=== PATIENT | male | born 1955 | race Caucasian/White ===

== ENCOUNTER 2021-06-13 20:55 | Inpatient (IN) | payer MEDICAID, SELFPAY ==
--- NOTE | ~2021-06-13 | XR_ITS ---
EXAMINATION: XR KNEE, RIGHT CLINICAL INFORMATION: Right knee pain status post fall. COMPARISON: 02/11/2018 right knee radiographs. TECHNIQUE: Four views of the right knee. FINDINGS: The patient is status post proximal tibial ORIF showing good anatomic alignment with no evidence for hardware malfunction. Mild femoral-tibial degenerative joint changes are seen. There is no acute fracture, dislocation or joint effusion. Moderate atherosclerosis is noted. XR/XR knee RT 2V IMPRESSION: 1. No hardware abnormality. No acute fracture. 2. Mild femoral-tibial degenerative joint changes.
--- NOTE | ~2021-06-13 | CT_ITS ---
EXAMINATION: CT CERVICAL SPINE WITHOUT CONTRAST CLINICAL INFORMATION: Neck pain status post fall. COMPARISON: 08/05/[address] scan. TECHNIQUE: Multiple axial images of the cervical spine were obtained without intravenous contrast. Coronal and sagittal reformatted images were obtained. This CT examination was performed using dose optimization techniques as appropriate, variously including the following: *Automated exposure control *Adjustment of mA and/or kV according to patient size (this includes techniques or standardized protocols for targeted exams where dose is matched to indication/reason for exam; i.e. extremities or head) *Use of iterative reconstruction technique DLP: 402.88 mGy-cm FINDINGS: There is mild straightening of the normal cervical lordosis with normal spinal alignment. Moderate multilevel marginal osteophyte formation is seen. The vertebral bodies are intact. There is no acute fracture. The neural foramina are patent. The facet joints are unremarkable. The spinous processes are intact. Small nuchal ossification is noted at C4-C5. The prevertebral soft tissues are unremarkable. The cervical soft tissues are unremarkable. No lymphadenopathy. Moderate atherosclerosis is seen at the level of the carotid bulbs. The thyroid glands are unremarkable. The visualized lungs show mild biapical paraseptal emphysema. CT/CT cervical spine wo con IMPRESSION: 1. Multilevel degenerative changes without acute abnormality.
--- NOTE | ~2021-06-13 | XR_ITS ---
EXAMINATION: XR PELVIS CLINICAL INFORMATION: Right hip pain status post fall. COMPARISON: None TECHNIQUE: AP view of the pelvis. FINDINGS: Positioning is suboptimal. Deformity seen in the left intertrochanteric region with avulsion of the left lesser trochanter and mild varus angulation. The patient is status post right hip ORIF. There is good anatomic alignment without hardware malfunction. Hypertrophic osseous changes are seen predominantly in the region of the lesser trochanter. Mild bilateral hip degenerative joint changes are seen. The bony pelvis is intact. XR/XR pelvis 1-2V IMPRESSION: 1. Acute left intertrochanteric fracture. 2. No right hip hardware abnormality or acute fracture.
--- NOTE | ~2021-06-13 | CT_ITS ---
EXAMINATION: CT HEAD WITHOUT CONTRAST CLINICAL INFORMATION: Status post fall, rule out intracranial abnormality. COMPARISON: Head CT scan dated 10/18/2015. TECHNIQUE: Contiguous axial imaging was performed from the skull base to vertex without intravenous administration of contrast. Coronal and sagittal reformatted images were obtained. This CT examination was performed using dose optimization techniques as appropriate, variously including the following: *Automated exposure control *Adjustment of mA and/or kV according to patient size (this includes techniques or standardized protocols for targeted exams where dose is matched to indication/reason for exam; i.e. extremities or head) *Use of iterative reconstruction technique DLP: 764.80 mGy-cm FINDINGS: There is mild widening of the cortical sulci and associated ventriculomegaly. Mild periventricular microvascular changes are seen. The lateral ventricles are symmetrical. The third and fourth ventricles are in their normal midline position. Mild partial empty sella. The basilar and prepontine cisterns are unremarkable. There is no acute intra or extracerebral abnormality. There is no mass effect or midline shift. Sections through the bony calvarium are unremarkable. The orbits are intact. The paranasal sinuses are clear. The mastoid air cells are clear. Mild anterior nasal septal deviation, apex to the left is noted. CT/CT head/brain wo con IMPRESSION: No acute intracranial pathology.
[2021-06-13 21:03] VITALS: BP 110/60; BP 119/69; PULSE 70; PULSE 75; RESP 16; TEMP 36.3; O2SAT 97; O2SAT 99; BMI 23.6
--- NOTE | 2021-06-13 21:03 | ED_ITS ---
HPI - Fall General Chief Complaint: Fall Stated Complaint: fall Time Seen by Provider: 06/13/21 21:02 Source: patient Mode of arrival: EMS Limitations: altered mental status History of Present Illness complaint: fall Onset (ago): minute(s) (prior to arrival ) Fall from: standing Fall witnessed: yes, by living facility staff Place fall occurred: home Loss of consciousness: none Prolonged down time: no Symptoms prior to fall: none Context: tripped/slipped Location of injury: other (? L leg or R knee staff unsure did not strike head) Severity: mild Associated symptoms (after fall): unable to walk Related Data Allergies Allergy/AdvReac Type Severity Reaction Status Date / Time No Known Allergies Allergy Unverified 11/23/19 18:21 [No Known Allergies*] Review of Systems Review of Systems: ROS unable to be obtained due to altered mental status PMFSH Past Medical History Attestation statement: The following information was validated with the patient. Medical History Afib Dementia Falls HTN (hypertension) Social History Social History (Updated 06/13/21 @ 21:44 by Tati Kumar DO) Patient Tobacco Use Status: Tobacco use Unknown Advance Directives: No Advance Directives Information Provided: No Physical Exam Vital Signs: Vital Signs: Last Vital Signs Temp 97.4 F 06/13/21 21:03 Pulse 72 06/13/21 22:20 Resp 14 06/13/21 22:20 BP 123/78 06/13/21 22:20 Pulse Ox 99 06/13/21 22:20 BMI result Body Mass Index 23.6 Appearance: Alert. Confused. No acute distress. Eyes: Pupils equal, round and reactive to light. ENT: Pharynx normal. Atraumatic Neck: Normal inspection. Neck supple. CVS: irregular heart rate and rhythm. Pulses normal. Respiratory: No respiratory distress. Breath sounds normal. Abdomen: Soft and nontender. Atraumatic Skin: Skin warm and dry. Normal skin color. Extremities: No lower extremity edema. R knee ttp no effusion, says ow when moving L hip Neuro: Confused, moves all extremities, says Ow Course Course Course Narrative: message sent to Orthopedics they are aware medicine to admit MDM - Fall MDM Narrative Medical decision making narrative: 66 yo male with hx of dementia, falls, afib on DOAC, here with witnessed fall from SNF c/o R knee pain and L ?hip pain at this time will obtain labs, xrays of pelvis and R knee given DOAC use will obtain CT head/cspine. EKG as well. Dispo per results and findings. Lab Data Result diagrams: 06/13/21 23:00 06/13/21 23:00 Labs: Lab Results 06/13/21 06/13/21 06/13/21 Range/Units 23:00 23:00 23:00 WBC 9.5 (4.8-10.8) X10*3/uL RBC 5.01 (4.60-5.80) X10*6/uL Hgb 14.5 (14.0-18.0) g/dl Hct 43.9 (42.0-52.0) % MCV 87.6 (80.0-98.0) fL MCH 28.9 (27.0-33.0) pg MCHC 33.0 (31.0-36.0) g/dl RDW 14.6 (11.0-16.0) % Plt Count 159 L (160-400) X10*3/uL MPV 9.4 (9.4-12.4) fL Immature Gran % (Auto) 0.3 (0.0-0.4) % Neut % (Auto) 82.5 H (45-73) % Lymph % (Auto) 9.3 L (20-40) % [place] % (Auto) 7.0 (2-11) % Eos % (Auto) 0.6 (0-4) % Baso % (Auto) 0.3 (0-2) % Lymph # (Auto) 0.9 L (1.2-4.9) X10*3/uL [place] # (Auto) 0.7 (0.1-1.2) X10*3/uL Eos # (Auto) 0.1 (0.0-0.4) X10*3/uL Baso # (Auto) 0.0 (0.0-0.2) X10*3/uL Abs Immat Gran (auto) 0.03 (0.00-0.03) X10*3/uL Absolute Neuts (auto) 7.8 (2.0-8.3) x10*3/uL Absolute Nucleated RBC 0.000 (0.0-0.012) X10*3/uL Nucleated RBC % (auto) 0.0 (0.0-0.2) /100WBC PT 16.9 H (9.9-13.0) SEC INR 1.5 H (0.9-1.1) Sodium 141 (135-145) mmol/L Potassium 4.9 (3.3-5.1) mmol/L Chloride 106 (96-108) mmol/L Carbon Dioxide 25 (22-29) mmol/L Anion Gap 15 (12-20) BUN 24 H (9-16) mg/dL Creatinine 1.06 (0.5-1.4) mg/dL Estim Creat Clear Calc 67.6 Estimated GFR > 60 Random Glucose 133 H (60-115) mg/dL Calcium 9.9 (8.4-10.2) mg/dL Magnesium 2.2 (1.6-2.6) mg/dL Total Bilirubin 0.4 (0.0-1.0) mg/dL Direct Bilirubin 0.2 (0.0-0.5) mg/dL AST 17 (5-37) U/L ALT 12 (0-40) U/L Alkaline Phosphatase 86 (39-117) U/L Total Protein 8.4 H (6.5-8.0) g/dL Albumin 4.9 (3.5-5.0) g/dL ECG Data Attestation: I personally reviewed and interpreted this ECG as follows: ECG interpretation date: 06/13/21 ECG interpretation time: 22:42 Interpretation: Rate: 93 Rhythm: afib [place]: normal Normal P waves. Normal SHEKHAR. Normal QRS complex. ST T wave : no KANU, nonspecific qTC: normal prior studies: no acute ischemia The study has been interpreted contemporaneously by me. Discharge Plan Discharge Clinical Impression: Closed intertrochanteric fracture Qualifiers: Encounter type: initial encounter Fracture alignment: nondisplaced Laterality: left Qualified Code(s): S72.145A - Nondisplaced intertrochanteric fracture of left femur, initial encounter for closed fracture Patient Disposition: Admitted As Inpatient
--- NOTE | 2021-06-13 21:18 | ECG_ITS ---
Test Reason : FALL Blood Pressure : / mmHG Vent. Rate : 093 BPM Atrial Rate : 000 BPM P-R Int : 000 ms QRS Dur : 078 ms QT Int : 348 ms P-R-T Axes : 000 046 040 degrees QTc Int : 432 ms Atrial fibrillation Low voltage QRS Abnormal ECG When compared with ECG of 11-FEB-2018 12:10, Atrial fibrillation has replaced Sinus rhythm Vent. rate has increased BY 32 BPM QRS axis Shifted right Referred By: Tati Kumar Electronically Signed By:HUAN QIU MD
[2021-06-13 22:20] VITALS: BP 123/78; PULSE 72; RESP 14; O2SAT 99
[2021-06-13] MEDS: Acetaminophen Oral Liquid 650 MG/20.3 ML SOLUTION PO (22:24)
[2021-06-13 23:04] LABS: MANUAL DIFF FLAG NO
[2021-06-13 23:09] LABS: Basophils Percent Auto 0.3 % (0-2); Eosinophils Absolute Auto 0.1 X10*3/uL (0.0-0.4); Eosinophils Percent Auto 0.6 % (0-4); Hematocrit 43.9 % (42.0-52.0); Hemoglobin 14.5 g/dl (14.0-18.0); Imm Gran Abs Auto 0.03 X10*3/uL (0.00-0.03); Imm Gran Pct Auto 0.3 % (0.0-0.4); Lymphocytes Absolute Auto 0.9 X10*3/uL (1.2-4.9); Lymphocytes Percent Auto 9.3 % (20-40); Mean Corpuscular Hemoglobin 28.9 pg (27.0-33.0); Mean Corpuscular Volume 87.6 fL (80.0-98.0); Mean Platelet Volume 9.4 fL (9.4-12.4); Monocytes Absolute Auto 0.7 X10*3/uL (0.1-1.2); Neutrophils Absolute Auto 7.8 x10*3/uL (2.0-8.3); Neutrophils Percent Auto 82.5 % (45-73); Platelet Count 159 X10*3/uL (160-400); Red Blood Count 5.01 X10*6/uL (4.60-5.80); Red Cell Distribution Width 14.6 % (11.0-16.0); White Blood Count 9.5 X10*3/uL (4.8-10.8)
[2021-06-13 23:14] LABS: INTERNATIONAL NORM RATIO 1.5 (0.9-1.1); Prothrombin Time 16.9 SEC (9.9-13.0)
[2021-06-13 23:24] LABS: Alanine Aminotransferase 12 U/L (0-40); Albumin Level 4.9 g/dL (3.5-5.0); Alkaline Phosphatase 86 U/L (39-117); Anion Gap 15 (12-20); Aspartate Amino Transferase 17 U/L (5-37); Bilirubin Direct 0.2 mg/dL (0.0-0.5); Bilirubin Total 0.4 mg/dL (0.0-1.0); Blood Urea Nitrogen 24 mg/dL (9-16); Calcium 9.9 mg/dL (8.4-10.2); Carbon Dioxide 25 mmol/L (22-29); Chloride 106 mmol/L (96-108); Creatinine Clr Calc Pharmacy 67.6; Estimated Glomerular Filt Rate > 60; Glucose Random 133 mg/dL (60-115); Magnesium 2.2 mg/dL (1.6-2.6); Potassium 4.9 mmol/L (3.3-5.1); Sodium 141 mmol/L (135-145); Total Protein 8.4 g/dL (6.5-8.0)
--- NOTE | 2021-06-13 23:38 | PM.IMHP ---
History of Present Illness Date of Service: 06/13/21 Chief Complaint: fall 66 year-old male with past medical history of progressive dementia, AFib, falls, hypertension who comes in from correction after falling from a standing position. History is obtained from ED physician as well as paperwork that came with the patient from correction. It appears that patient had a fall, then developed significant pain in his left hip. Patient was sent to the hospital for further evaluation. I am unable to get any history from patient himself as he is confused, not responding to questions although awake. On arrival to the ED patient found to be hemodynamically stable Labs are significant for INR of 1.5 otherwise unremarkable Pelvic x-ray shows acute left intertrochanteric fracture unable to obtain past medical history as patient has severe dementia patient will be admitted with consult to orthopedic surgery Review of Systems Review of Systems: Yes all other systems are reviewed and are negative [facility] Medical History Afib Dementia Falls HTN (hypertension) Social History Patient Tobacco Use Status: Tobacco use Unknown Advance Directives: No Advance Directives Information Provided: No Meds Allergies Allergy/AdvReac Type Severity Reaction Status Date / Time No Known Allergies Allergy Unverified 11/23/19 18:21 [No Known Allergies*] Active Medications: Current Medications Morphine Sulfate (Morphine Sulfate 4 Mg/Ml Cartridge) 4 mg IVPUSH Q4H PRN; Protocol PRN Reason: Pain, Severe (Pain Scale 7-10) Pharmacy Consult (Consult Rx Perform Med Rec) 1 each MISCELLANE ONCE PRN PRN Reason: Consult order Sodium Chloride (0.9 % Sodium Chloride Flush 3 Ml Syringe) 3 ml IVFLUSH [facility] Medications Medication Instructions Recorded Confirmed Last Taken Type apixaban 5 mg tablet (Eliquis) 5 mg PO BID 06/14/21 06/14/21 06/13/21 21:00 History aspirin 81 mg tablet 81 mg PO DAILY 06/14/21 06/14/21 06/13/21 09:00 History atorvastatin 20 mg tablet (Lipitor) 20 mg PO BEDTIME 06/14/21 06/14/21 06/13/21 21:00 History benztropine 1 mg tablet 1 mg PO BID 06/14/21 06/14/21 06/13/21 21:00 History diltiazem HCl 180 mg 180 mg PO DAILY 06/14/21 06/14/21 06/13/21 09:00 History capsule,extended release 24 hr (Cartia XT) famotidine 40 mg tablet (Pepcid) 40 mg PO DAILY 06/14/21 06/14/21 06/13/21 09:00 History metoprolol tartrate 25 mg tablet 25 mg PO BID 06/14/21 06/14/21 06/13/21 17:00 History mirtazapine 15 mg tablet (Remeron) 7.5 mg PO BEDTIME 06/14/21 06/14/21 06/13/21 21:00 History olanzapine 10 mg tablet (Zyprexa) 10 mg PO DAILY 06/14/21 06/14/21 06/13/21 21:00 History olanzapine 2.5 mg tablet (Zyprexa) 2.5 mg PO DAILY 06/14/21 06/14/21 06/13/21 21:00 History polyethylene glycol 3350 17 gram 17 g PO DAILY 06/14/21 06/14/21 06/13/21 09:00 History oral powder packet (Miralax) quetiapine 200 mg tablet (Seroquel) 150 mg PO BEDTIME 06/14/21 06/14/21 06/13/21 21:00 History quetiapine 50 mg tablet (Seroquel) 50 mg PO DAILY 06/14/21 06/14/21 06/13/21 09:00 History tamsulosin 0.4 mg capsule (Flomax) 0.4 mg PO BEDTIME 06/14/21 06/14/21 06/13/21 09:00 History valproic acid (as sodium salt) 250 625 mg PO BID 06/14/21 06/14/21 06/13/21 17:00 History mg/5 mL oral solution Physical Exam Vital Signs and Narrative: Vital Signs: Last Vital Signs Temp 97.4 F 06/13/21 21:03 Pulse 72 06/13/21 22:20 Resp 14 06/13/21 22:20 BP 123/78 06/13/21 22:20 Pulse Ox 99 06/13/21 22:20 BMI result Body Mass Index 23.6 Const: Other: awake, but confused, does not respond to questions General: cooperative and no acute distress Eyes: General: appearance normal, both eyes and all related structures Pupils: Equal, round and reactive pupils present Resp: Effort & Inspection: normal respiratory effort Auscultation: clear to auscultation bilaterally Cardio: Rate: regular rate Rhythm: regular rhythm GI: Palpation (GI): Soft to palpation Auscultation: normal bowel sounds Skin: General skin exam: no rashes or lesions noted Neuro: Cranial nerves: Yes Equal, round and reactive pupils present Extrem: Other: left hip tenderness General: Yes no pedal edema Results Labs CBC and Chem 7: 06/13/21 23:00 06/13/21 23:00 Labs: Laboratory Results - last 24 hr 06/13/21 06/13/21 06/13/21 23:00 23:00 23:00 MCV 87.6 MCH 28.9 MCHC 33.0 RDW 14.6 Plt Count 159 L MPV 9.4 Immature Gran % (Auto) 0.3 Neut % (Auto) 82.5 H Lymph % (Auto) 9.3 L [place] % (Auto) 7.0 Eos % (Auto) 0.6 Baso % (Auto) 0.3 Lymph # (Auto) 0.9 L [place] # (Auto) 0.7 Eos # (Auto) 0.1 Baso # (Auto) 0.0 Abs Immat Gran (auto) 0.03 Absolute Neuts (auto) 7.8 Absolute Nucleated RBC 0.000 Nucleated RBC % (auto) 0.0 PT 16.9 H INR 1.5 H Anion Gap 15 Estim Creat Clear Calc 67.6 Estimated GFR > 60 Random Glucose 133 H Calcium 9.9 Magnesium 2.2 Total Bilirubin 0.4 Direct Bilirubin 0.2 AST 17 ALT 12 Alkaline Phosphatase 86 Total Protein 8.4 H Albumin 4.9 Imaging Radiologist's Impressions: Impressions Knee X-Ray 06/13/21 21:29 IMPRESSION: 1. No hardware abnormality. No acute fracture. 2. Mild femoral-tibial degenerative joint changes. Pelvis X-Ray 06/13/21 21:29 IMPRESSION: 1. Acute left intertrochanteric fracture. 2. No right hip hardware abnormality or acute fracture. Cervical Spine CT 06/13/21 21:53 IMPRESSION: 1. Multilevel degenerative changes without acute abnormality. Head CT 06/13/21 21:53 IMPRESSION: No acute intracranial pathology. Assessment and Plan (1) Closed intertrochanteric fracture: Qualifiers: Encounter type: initial encounter Fracture alignment: nondisplaced Laterality: left Qualified Code(s): S72.145A - Nondisplaced intertrochanteric fracture of left femur, initial encounter for closed fracture Status: Acute Plan 66-year-old male with past medical history of dementia who presents to the hospital after a fall found to have left hip fracture # left intertrochanteric fracture - pain control, consult to orthopedic surgery - will hold eliquis- pt will likely need to be off eliquis prior to surgical intervention # A fib? - on eliquis and dilt - Continue dilt as well as metoprolol per home meds, hold eliquis in anticipation of surgery # Hnt - continue dilt - stable bp continue all other home meds DVT ppx: SCDs Quality Stroke Does the patient have a stroke diagnosis?: No VTE Prior VTE?: No VTE Risk Level:: Surgical - very high VTE Device Contraindication: N/A - Device Ordered VTE Drug Contraindication: Treatment Not Indicated
[2021-06-14] VITALS (9 sets, daily range): BP systolic 91–112; BP diastolic 63–79; PULSE 86–110; RESP 12–58; TEMP 36.2–37; O2SAT 82–99
[2021-06-14 00:02] LABS: COVID-19 Test Negative (Negative)
[2021-06-14] MEDS: 0.9 % Sodium Chloride Flush 3 ML SYRINGE IVFLUSH ×2 (01:49→16:24)
--- NOTE | 2021-06-14 05:30 | PC.NURSE ---
Report given to OF RN.
[2021-06-14] MEDS: Morphine Sulfate 4 MG/ML CARTRIDGE IVPUSH (06:00)
[2021-06-14 06:59] LABS: MANUAL DIFF FLAG NO
[2021-06-14 07:06] LABS: Basophils Percent Auto 0.3 % (0-2); Eosinophils Percent Auto 0.1 % (0-4); Hematocrit 37.4 % (42.0-52.0); Hemoglobin 12.3 g/dl (14.0-18.0); Imm Gran Abs Auto 0.05 X10*3/uL (0.00-0.03); Imm Gran Pct Auto 0.5 % (0.0-0.4); Lymphocytes Absolute Auto 1.2 X10*3/uL (1.2-4.9); Mean Corpuscular HGB Conc 32.9 g/dl (31.0-36.0); Mean Corpuscular Hemoglobin 29.3 pg (27.0-33.0); Mean Platelet Volume 9.9 fL (9.4-12.4); Monocytes Absolute Auto 1.4 X10*3/uL (0.1-1.2); Monocytes Percent Auto 12.9 % (2-11); Neutrophils Absolute Auto 7.9 x10*3/uL (2.0-8.3); Neutrophils Percent Auto 75.2 % (45-73); Platelet Count 178 X10*3/uL (160-400); Red Cell Distribution Width 14.8 % (11.0-16.0); White Blood Count 10.5 X10*3/uL (4.8-10.8)
[2021-06-14 07:23] LABS: Anion Gap 15 (12-20); Blood Urea Nitrogen 27 mg/dL (9-16); Carbon Dioxide 23 mmol/L (22-29); Chloride 107 mmol/L (96-108); Creatinine Clr Calc Pharmacy 71.6; Estimated Glomerular Filt Rate > 60; Glucose Random 137 mg/dL (60-115); Potassium 4.3 mmol/L (3.3-5.1); Sodium 141 mmol/L (135-145)
--- NOTE | 2021-06-14 10:00 | PC.NURSE ---
pt alert oriented to self. pt assisted with meal, meds given as documented. some meds were not loaded in overflow pyxis, this conventional underwriter spoke with Tono in pharmacy to send meds. will continue to monitor.
--- NOTE | 2021-06-14 10:27 | P.EN_ITS ---
Event Note Date of Service: 06/14/21 Event Note: Spoke with [facility] in regards to patient [phone] He does ambulate with assitive device at baseline Spoke with nurse supervisor mirror fabrication at [facility]-judit kirkland He takes eliquis 9am and 5pm per MAR documentation at [facility] the last dose of eliquis was 06/13/21 @9pm he is a virgen of the formerly [facility], [facility] Guardian: jay brown [phone]
--- NOTE | 2021-06-14 10:27 | PM.EVENT ---
Event Note Date of Service: 06/14/21 Event Note: Spoke with [facility] in regards to patient [phone] He does ambulate with assitive device at baseline Spoke with nurse cured meats supervisor at [facility]-judit kirkland He takes eliquis 9am and 5pm per MAR documentation at [facility] the last dose of eliquis was 06/13/21 @9pm he is a virgen of the [facility] Guardian: jay brown [phone]
--- NOTE | 2021-06-14 10:28 | HO.PM.IMPN ---
Subjective Subjective Date of Service: 06/14/21 Interval History: seen and evaluated this morning open his eyes but nonverbal Review of Systems unable to obtain as the patient is nonverbal Physical Exam Vital Signs: Vital Signs: Last Vital Signs Temp 97.3 F 06/14/21 08:17 Pulse 86 06/14/21 08:17 Resp 15 06/14/21 08:17 BP 91/77 06/14/21 08:17 Pulse Ox 99 06/14/21 08:17 BMI result Body Mass Index 23.6 Const: Other: Constitutional : Alert with stimulation, not in distress Neck : Normal inspection, Supple Cardiovascular : RRR, no JVP, no lower extremity edema Respiratory : fair bilateral air entry, no crackles, wheezes or rhonchi Gastrointestinal: soft, lax, Normal bowel sounds, Non tender Skin : Warm, Dry extremities: left lower extremity shorter and externall Neurological : Alert, nonverbal, No focal deficit , CN 2-12 within normal Objective Data Active Medications Atorvastatin Calcium (Atorvastatin Calcium 20 Mg Tablet) 20 mg PO BEDTIME [facility]O Benztropine Mesylate (Benztropine Mesylate 1 Mg Tablet) 1 mg PO BID [facility] Diltiazem HCl (Diltiazem Hcl Cd 180 Mg Cap.Er.24h) 180 mg PO DAILY [facility]; Protocol Famotidine (Famotidine 20 Mg Tablet) 40 mg PO DAILY [facility] Metoprolol Tartrate (Metoprolol Tartrate 25 Mg Tablet) 25 mg PO BID [facility]; Protocol Mirtazapine (Mirtazapine 7.5 Mg Tablet) 7.5 mg PO BEDTIME [facility] Morphine Sulfate (Morphine Sulfate 4 Mg/Ml Cartridge) 4 mg IVPUSH Q4H PRN; Protocol PRN Reason: Pain, Severe (Pain Scale 7-10) Last Admin: 06/14/21 06:00 Dose: 4 mg Documented by: VEL Olanzapine (Olanzapine 2.5 Mg Tablet) 2.5 mg PO BID [facility]O Olanzapine (Olanzapine 10 Mg Tablet) 10 mg PO BID [facility] Pharmacy Consult (Consult Rx Perform Med Rec) 1 each MISCELLANE ONCE PRN PRN Reason: Consult order Polyethylene Glycol (Polyethylene Glycol 3350 17 Gm Powd.Pack) 17 gm PO DAILY [facility] Quetiapine Fumarate (Quetiapine Fumarate 50 Mg Tablet) 50 mg PO DAILY [facility] Quetiapine Fumarate (Quetiapine Fumarate 50 Mg Tablet) 150 mg PO BEDTIME [facility] Sodium Chloride (0.9 % Sodium Chloride Flush 3 Ml Syringe) 3 ml IVFLUSH QSHIFT [facility] Last Admin: 06/14/21 07:34 Dose: Not Given Documented by: MILVIA Non-Admin Reason: IV Running Tamsulosin HCl (Tamsulosin Hcl 0.4 Mg Capsule) 0.4 mg PO BEDTIME [facility] Valproic Acid (Valproic Acid (As Sodium Salt) 250 Mg/5 Ml Solution) 625 mg PO BID [facility] Labs CBC & Chem 7: 06/14/21 06:05 06/14/21 06:05 Labs: Laboratory Results - last 24 hr 06/13/21 06/13/21 06/13/21 23:00 23:00 23:00 MCV 87.6 MCH 28.9 MCHC 33.0 RDW 14.6 Plt Count 159 L MPV 9.4 Immature Gran % (Auto) 0.3 Neut % (Auto) 82.5 H Lymph % (Auto) 9.3 L [place] % (Auto) 7.0 Eos % (Auto) 0.6 Baso % (Auto) 0.3 Lymph # (Auto) 0.9 L [place] # (Auto) 0.7 Eos # (Auto) 0.1 Baso # (Auto) 0.0 Abs Immat Gran (auto) 0.03 Absolute Neuts (auto) 7.8 Absolute Nucleated RBC 0.000 Nucleated RBC % (auto) 0.0 PT 16.9 H INR 1.5 H Anion Gap 15 Estim Creat Clear Calc 67.6 Estimated GFR > 60 Random Glucose 133 H Calcium 9.9 Magnesium 2.2 Total Bilirubin 0.4 Direct Bilirubin 0.2 AST 17 ALT 12 Alkaline Phosphatase 86 Total Protein 8.4 H Albumin 4.9 COVID-19 ([facility]) COVID-19 Clin Com Blood Type Antibody Screen 06/13/21 06/13/21 06/14/21 23:20 23:20 06:05 MCV 89.0 MCH 29.3 MCHC 32.9 RDW 14.8 Plt Count 178 MPV 9.9 Immature Gran % (Auto) 0.5 H Neut % (Auto) 75.2 H Lymph % (Auto) 11.0 L [place] % (Auto) 12.9 H Eos % (Auto) 0.1 Baso % (Auto) 0.3 Lymph # (Auto) 1.2 [place] # (Auto) 1.4 H Eos # (Auto) 0.0 Baso # (Auto) 0.0 Abs Immat Gran (auto) 0.05 H Absolute Neuts (auto) 7.9 Absolute Nucleated RBC 0.000 Nucleated RBC % (auto) 0.0 PT INR Anion Gap Estim Creat Clear Calc Estimated GFR Random Glucose Calcium Magnesium Total Bilirubin Direct Bilirubin AST ALT Alkaline Phosphatase Total Protein Albumin COVID-19 ([facility]) Negative COVID-19 Clin Com See Note Blood Type B Positive Antibody Screen NEGATIVE 06/14/21 06:05 MCV MCH MCHC RDW Plt Count MPV Immature Gran % (Auto) Neut % (Auto) Lymph % (Auto) [place] % (Auto) Eos % (Auto) Baso % (Auto) Lymph # (Auto) [place] # (Auto) Eos # (Auto) Baso # (Auto) Abs Immat Gran (auto) Absolute Neuts (auto) Absolute Nucleated RBC Nucleated RBC % (auto) PT INR Anion Gap 15 Estim Creat Clear Calc 71.6 Estimated GFR > 60 Random Glucose 137 H Calcium 10.0 Magnesium Total Bilirubin Direct Bilirubin AST ALT Alkaline Phosphatase Total Protein Albumin COVID-19 ([facility]) COVID-19 Clin Com Blood Type Antibody Screen Assessment and Plan (1) Closed intertrochanteric fracture: Status: Acute Plan 66-year-old male with past medical history of dementia who presents to the hospital after a fall found to have left hip fracture # left intertrochanteric fracture pain control consult to orthopedic continue to hold eliquis # history AFib his continue diltiazem and metoprolol hold eliquis in anticipation of surgery # hypertension continue dilt continue the rest of home meds DVT ppx: SCDs the patient will need to stay overnight to continue pain management with plan for surgical in Quality Stroke Does the patient have a stroke diagnosis?: No VTE Prior VTE?: No VTE Risk Level:: Surgical - very high VTE Device Contraindication: N/A - Device Ordered VTE Drug Contraindication: Treatment Not Indicated
[2021-06-14] MEDS: Famotidine 20 MG TABLET 40 MG PO (11:11)
[2021-06-14] MEDS: dilTIAZem HCL CD 180 MG CAP.ER.24H PO (11:11)
[2021-06-14] MEDS: polyethylene glycoL 3350 17 GM POWD.PACK PO (11:11)
[2021-06-14] MEDS: Metoprolol Tartrate 25 MG TABLET PO ×2 (11:12→20:08)
[2021-06-14] MEDS: QUEtiapine Fumarate 50 MG TABLET PO (11:12)
--- NOTE | 2021-06-14 11:12 | MHC.CM.PN ---
PT IS A LTC RESIDENT OF [facility] PER [facility], PT HAS A LEGAL GUARDIAN [employer]OTT ISHA ALEJANDRINA THEY PROVIDED A CONTACT NUMBER OF [phone] BOTH JINA ADAMS AND CM HAVE ATTEMPTED TO CONTACT GUARDIAN USING THIS NUMBER, IT APPEARS TO BE OUT OF SERVICE CM SENT A REFERRAL TO [facility]IA [employer] WITH A MESSAGE REQUESTING AN ALTERNATE CONTACT NUMBER FOR PTS GUARDIAN. AWAITING RESPONSE.
[2021-06-14] MEDS: Benztropine Mesylate 1 MG TABLET PO ×2 (11:55→20:08)
[2021-06-14] MEDS: OLANZapine 2.5 MG TABLET PO ×2 (11:55→20:09)
[2021-06-14] MEDS: OLANZapine 10 MG TABLET PO ×2 (11:55→20:09)
--- NOTE | 2021-06-14 12:15 | P.CONOP_ITS ---
History of Present Illness HPI Consult date: 06/14/21 Chief complaint: left hip fracture Narrative: This is a 66 yo male who presented to the ED from [facility] in [place], where he permanently resides after sustaining a fall. The patient has baseline dementia and is unable to provide a history. Per ED notes, he does have afib and is on Eliquis. While in the ED, xrays obtained demonstrated a left intertrochanteric fracture of the femur. He was admitted to the medical service for further workup and orthopedics was consulted. I did speak with Kleber Gongora, Nurse Case Coordinator at [facility] who told me the patient does ambulate at baseline with device. Last dose of eliquis was 06/13/21 @9pm [facility] Past Medical History Medical History Afib Dementia Falls HTN (hypertension) Social History Social History Patient Tobacco Use Status: Tobacco use Unknown Advance Directives: No Advance Directives Information Provided: No Meds Allergies Allergy/AdvReac Type Severity Reaction Status Date / Time No Known Allergies Allergy Unverified 11/23/19 18:21 [No Known Allergies*] Active Medications: Current Medications Atorvastatin Calcium (Atorvastatin Calcium 20 Mg Tablet) 20 mg PO BEDTIME [facility] Benztropine Mesylate (Benztropine Mesylate 1 Mg Tablet) 1 mg PO BID [facility] Last Admin: 06/14/21 11:55 Dose: 1 mg Documented by: Diltiazem HCl (Diltiazem Hcl Cd 180 Mg Cap.Er.24h) 180 mg PO DAILY [facility]; Protocol Last Admin: 06/14/21 11:11 Dose: 180 mg Documented by: Enoxaparin Sodium (Enoxaparin Sodium 80 Mg/0.8 Ml Syringe) 70 mg 1 mg/kg (70 mg) SUBCUT Q12H RICCARDO Stop: 06/15/21 11:59 Famotidine (Famotidine 20 Mg Tablet) 40 mg PO DAILY [facility] Last Admin: 06/14/21 11:11 Dose: 40 mg Documented by: Metoprolol Tartrate (Metoprolol Tartrate 25 Mg Tablet) 25 mg PO BID [facility]; Protocol Last Admin: 06/14/21 11:12 Dose: 25 mg Documented by: Mirtazapine (Mirtazapine 7.5 Mg Tablet) 7.5 mg PO BEDTIME [facility] Morphine Sulfate (Morphine Sulfate 4 Mg/Ml Cartridge) 4 mg IVPUSH Q4H PRN; Protocol PRN Reason: Pain, Severe (Pain Scale 7-10) Last Admin: 06/14/21 06:00 Dose: 4 mg Documented by: Olanzapine (Olanzapine 2.5 Mg Tablet) 2.5 mg PO BID [facility] Last Admin: 06/14/21 11:55 Dose: 2.5 mg Documented by: Olanzapine (Olanzapine 10 Mg Tablet) 10 mg PO BID [facility] Last Admin: 06/14/21 11:55 Dose: 10 mg Documented by: Pharmacy Consult (Consult Rx Perform Med Rec) 1 each MISCELLANE ONCE PRN PRN Reason: Consult order Polyethylene Glycol (Polyethylene Glycol 3350 17 Gm Powd.Pack) 17 gm PO DAILY [facility] Last Admin: 06/14/21 11:11 Dose: 17 gm Documented by: Quetiapine Fumarate (Quetiapine Fumarate 50 Mg Tablet) 50 mg PO DAILY [facility] Last Admin: 06/14/21 11:12 Dose: 50 mg Documented by: Quetiapine Fumarate (Quetiapine Fumarate 50 Mg Tablet) 150 mg PO BEDTIME [facility] Sodium Chloride (0.9 % Sodium Chloride Flush 3 Ml Syringe) 3 ml IVFLUSH QSHIFT [facility] Last Admin: 06/14/21 07:34 Dose: Not Given Documented by: Tamsulosin HCl (Tamsulosin Hcl 0.4 Mg Capsule) 0.4 mg PO BEDTIME [facility] Valproic Acid (Valproic Acid (As Sodium Salt) 250 Mg/5 Ml Solution) 625 mg PO BID [facility] Last Admin: 06/14/21 11:55 Dose: 625 mg Documented by: Home Medications Medication Instructions Recorded Confirmed Last Taken Type apixaban 5 mg tablet (Eliquis) 5 mg PO BID 06/14/21 06/14/21 06/13/21 21:00 History aspirin 81 mg chewable tablet 81 mg PO DAILY 06/14/21 06/14/21 06/13/21 History atorvastatin 20 mg tablet (Lipitor) 20 mg PO BEDTIME 06/14/21 06/14/21 06/13/21 21:00 History benztropine 1 mg tablet 1 mg PO BID 06/14/21 06/14/21 06/13/21 21:00 History diltiazem HCl 180 mg 180 mg PO DAILY 06/14/21 06/14/21 06/13/21 09:00 History capsule,extended release 24 hr (Cartia XT) famotidine 40 mg tablet (Pepcid) 40 mg PO DAILY 06/14/21 06/14/21 06/13/21 09:00 History metoprolol tartrate 25 mg tablet 25 mg PO BID 06/14/21 06/14/21 06/13/21 17:00 History mirtazapine 15 mg tablet (Remeron) 7.5 mg PO BEDTIME 06/14/21 06/14/21 06/13/21 21:00 History olanzapine 10 mg tablet (Zyprexa) 10 mg PO BID 06/14/21 06/14/21 06/13/21 21:00 History olanzapine 2.5 mg tablet (Zyprexa) 2.5 mg PO BID 06/14/21 06/14/21 06/13/21 21:00 History polyethylene glycol 3350 17 gram 17 g PO DAILY 06/14/21 06/14/21 06/13/21 09:00 History oral powder packet (Miralax) quetiapine 200 mg tablet (Seroquel) 150 mg PO BEDTIME 06/14/21 06/14/21 06/13/21 21:00 History quetiapine 50 mg tablet (Seroquel) 50 mg PO DAILY 06/14/21 06/14/21 06/13/21 0 9:00 History sennosides 8.6 mg-docusate sodium 1 tab-cap PO BID 06/14/21 06/14/21 06/13/21 History 50 mg tablet (Senna Plus) tamsulosin 0.4 mg capsule (Flomax) 0.4 mg PO BEDTIME 06/14/21 06/14/21 06/13/21 09:00 History valproic acid (as sodium salt) 250 625 mg PO BID 06/14/21 06/14/21 06/13/21 17:00 History mg/5 mL oral solution Physical Exam Vital Signs: Vital Signs: Last Vital Signs Temp 97.3 F 06/14/21 08:17 Pulse 86 06/14/21 08:17 Resp 15 06/14/21 08:17 BP 91/77 06/14/21 08:17 Pulse Ox 99 06/14/21 08:17 BMI result Body Mass Index 23.6 Const: General: comfortable and no acute distress Extrem: Other: Left leg skin intact, no open wounds or abraisons. Tenderness with log roll and inability to SLR. NVI. Results Labs Result Diagrams: 06/14/21 06:05 06/14/21 06:05 Labs: Abnormal lab results 06/13/21 06/13/21 06/13/21 Range/Units 23:00 23:00 23:00 RBC (4.60-5.80) X10*6/uL Hgb (14.0-18.0) g/dl Hct (42.0-52.0) % Plt Count 159 L (160-400) X10*3/uL Immature Gran % (Auto) (0.0-0.4) % Neut % (Auto) 82.5 H (45-73) % Lymph % (Auto) 9.3 L (20-40) % [place] % (Auto) (2-11) % Lymph # (Auto) 0.9 L (1.2-4.9) X10*3/uL [place] # (Auto) (0.1-1.2) X10*3/uL Abs Immat Gran (auto) (0.00-0.03) X10*3/uL PT 16.9 H (9.9-13.0) SEC INR 1.5 H (0.9-1.1) BUN 24 H (9-16) mg/dL Random Glucose 133 H (60-115) mg/dL Total Protein 8.4 H (6.5-8.0) g/dL 06/14/21 06/14/21 Range/Units 06:05 06:05 RBC 4.20 L (4.60-5.80) X10*6/uL Hgb 12.3 L (14.0-18.0) g/dl Hct 37.4 L (42.0-52.0) % Plt Count (160-400) X10*3/uL Immature Gran % (Auto) 0.5 H (0.0-0.4) % Neut % (Auto) 75.2 H (45-73) % Lymph % (Auto) 11.0 L (20-40) % [place] % (Auto) 12.9 H (2-11) % Lymph # (Auto) (1.2-4.9) X10*3/uL [place] # (Auto) 1.4 H (0.1-1.2) X10*3/uL Abs Immat Gran (auto) 0.05 H (0.00-0.03) X10*3/uL PT (9.9-13.0) SEC INR (0.9-1.1) BUN 27 H (9-16) mg/dL Random Glucose 137 H (60-115) mg/dL Total Protein (6.5-8.0) g/dL H & H 06/13/21 06/14/21 Range/Units 23:00 06:05 Hgb 14.5 12.3 L (14.0-18.0) g/dl Hct 43.9 37.4 L (42.0-52.0) % Coagulation 06/13/21 Range/Units 23:00 INR 1.5 H (0.9-1.1) All other labs normal. Assessment and Plan (1) Closed intertrochanteric fracture: Qualifiers: Encounter type: initial encounter Fracture alignment: nondisplaced Laterality: left Qualified Code(s): S72.145A - Nondisplaced intertrochanteric fracture of left femur, initial encounter for closed fracture Status: Acute Plan I discussed the case with Dr Hernandez and explained the extent of the injury to the patient and options available which include surgical intervention. He is confused at baseline, so he did not express understanding of the situation. ( this was done with technical assistant at bedside ) I attempted to contact the guardian several times but the number is not in service. [phone] The plan would be to proceed with operative fixation of the left femur 72 hours post last Eliquis dose. The patient will be T&S, med clearance obtained and NPO after midnight Wednesday, pending surgery Wednesday. Procedures Date of Service Date of Service: 06/14/21
[2021-06-14] MEDS: Enoxaparin Sodium 80 MG/0.8 ML SYRINGE 70 MG SUBCUT (13:01)
--- NOTE | 2021-06-14 15:31 | PC.NURSE ---
report given to JACOB Arriaza. pt will be transferred to room 369. vss.
[2021-06-14] MEDS: QUEtiapine Fumarate 50 MG TABLET 150 MG PO (20:08)
[2021-06-14] MEDS: Mirtazapine 7.5 MG TABLET PO (20:09)
[2021-06-14] MEDS: Atorvastatin Calcium 20 MG TABLET PO (20:09)
[2021-06-14] MEDS: Tamsulosin HCL 0.4 MG CAPSULE PO (20:09)
[2021-06-15] VITALS: O2SAT 86
--- NOTE | 2021-06-15 | ECG_ITS ---
Test Reason : afib Blood Pressure : / mmHG Vent. Rate : 124 BPM Atrial Rate : 000 BPM P-R Int : 000 ms QRS Dur : 084 ms QT Int : 268 ms P-R-T Axes : 000 052 213 degrees QTc Int : 385 ms Atrial fibrillation with rapid ventricular response ST & T wave abnormality, consider inferior ischemia Abnormal ECG When compared with ECG of 13-JUN-2021 22:30, ST now depressed in Inferior leads ST now depressed in Lateral leads T wave inversion now evident in Inferior leads T wave amplitude has increased in Anterior leads Referred By: Martina Whittington Electronically Signed By:Andrew Thakkar
[2021-06-15 00:51] LABS: Venous Blood Gas Refer to POC result
[2021-06-15 00:52] LABS: VBG Base Excess -24.5 mmol/L; VBG HCO3 7 mmol/L (22-26); VBG pCO2 33 mmHg; VBG pH 6.91 (7.32-7.43); VBG pO2 68 mmHg
--- NOTE | 2021-06-15 00:54 | ECG_ITS ---
Test Reason : cardiac arrest Blood Pressure : / mmHG Vent. Rate : 094 BPM Atrial Rate : 000 BPM P-R Int : 000 ms QRS Dur : 086 ms QT Int : 312 ms P-R-T Axes : 000 045 223 degrees QTc Int : 390 ms Atrial fibrillation Marked ST abnormality, possible inferior subendocardial injury Marked ST abnormality, possible anterolateral subendocardial injury Abnormal ECG When compared to the previous EKG of Marked ST depressions present - consider ischemia Referred By: Martina Whittington Electronically Signed By:Andrew Thakkar
[2021-06-15 01:10] LABS: Anion Gap 31 (12-20); Blood Urea Nitrogen 41 mg/dL (9-16); Calcium 9.2 mg/dL (8.4-10.2); Carbon Dioxide 8 mmol/L (22-29); Chloride 105 mmol/L (96-108); Creatinine Clr Calc Pharmacy 21.2; Estimated Glomerular Filt Rate 18; Glucose Random 357 mg/dL (60-115); Potassium 4.6 mmol/L (3.3-5.1); Sodium 139 mmol/L (135-145)
[2021-06-15 01:18] LABS: Lactic Acid 14.3 mmol/L (0.5-2.0)
--- NOTE | 2021-06-15 01:44 | PM.EVENT ---
Event Note Date of Service: 06/15/21 Event Note: Was asked to see this patient on for concerns of hypoxia, and unresponsiveness. Patient was found to be slightly hypotensive with BP of and 8/75, was noted to have respiratory rate of 58, patient was placed on non-rebreather but on my arrival we were unable to get any vitals on him. Various methods were tried to obtain oxygen saturation and BP but were unsuccessful. At the time patient was awake, tracking with his eyes, but was tachypneic. IV fluids were started, labs were ordered, but patient subsequently went into cardiac arrest. He was in pulseless electrical activities. Labs obtained before the cardiac arrest showed a pH of 6.9 with a lactic acid of 14. Unclear etiology for the cardiac arrest. We were able to obtain ROSC after 20 minutes of CPR, as well as intubation, but 10 minutes after [place] patient went into cardiac arrest again and we were unsuccessful in reviving the patient. Patient past at 01:25 on 06/15. Guardian was called, no answer at the phone, left a voice message.
[2021-06-15 01:50] VITALS: O2SAT 85
--- NOTE | 2021-06-15 02:02 | W.PM.CCHP ---
Procedures Date of Service Date of Service: 06/15/21 Intubation Intubation Comments: during code Consent for Procedure: Emergent-no informed consent obtained Time out performed: Yes Sedative: etomidate Mg given: 10 Paralytic: succinylcholine Mg given: 100 Laryngoscope: fiber optic video scope ET tube size: 8 ET tube uncuffed: Yes Tube secured depth (cm): 22 Tube secured location: lips Tube placement confirmation: visualized tube passing through cords, equal breath sounds bilaterally, no breath sounds over epigastrium and confirmation by capnometry Patient tolerated procedure: well and no complications Intubation complications: none
[2021-06-15 02:41] LABS: Reflex Lactate? Lactic Acid Added
--- NOTE | 2021-06-15 02:58 | PC.NURSE ---
Patient found by nurses aide with abnormal vitals, who immediatley notified RN. Patient was nonverbal with eyes open. Nonrebreather applied at 100%. Hospitalist contacted as well as superviosr and respiratory therapist, ultimately, a rapid response was called overhead for patient. Patient found with cool extremities, and pale color. Heartrate registered 180's on dynamap, however, I was unable to palpate pulses or hear heartbeat over his respirations. Patient began receiving IV bolus after doctor arrived and patient quickly declined while staff was in the room despite efforts. Code was called, patient .
--- NOTE | 2021-06-15 03:06 | PC.NURSE ---
Organ bank contacted and declined
--- NOTE | 2021-06-15 07:08 | P.DS_ITS ---
DS: Providers Provider Date of Service: 06/15/21 Date of admission: 06/13/21 23:36 Primary care physician: Unknown Physician Consults: 06/13/21 23:35 Consult to Orthopedics Routine Consulting Provider: Alok Hernandez Reason for consultation: L hip fx Has provider been notified: Yes DS: Diagnosis Discharge Diagnosis (1) Closed intertrochanteric fracture: Status: Acute (2) Cardiac arrest: Status: Acute (3) Metabolic acidosis: Status: Acute DS: Summary Hospital Course Hospital Course: Admission note HPI 66 year-old male with past medical history of? progressive dementia, AFib, falls, hypertension who comes in from correction after falling from a standing position.? History is obtained from ED physician as well as paperwork that came with the patient from correction.? It appears that patient had a fall, then developed significant pain in his left hip.? Patient was sent to the hospital for further evaluation.? I am unable to get any history from patient himself as he is confused, not responding to questions although awake. On arrival to the ED patient found to be hemodynamically stable. Labs are significant for INR of 1.5 otherwise unremarkable. Pelvic x-ray shows acute left intertrochanteric fracture. ?unable to obtain past medical history as patient has severe dementia. ?patient will be admitted with consult to orthopedic surgery hospital course The patient was admitted for planned treatment for surgical intervention to correct the hip fracture as he was evaluated by the Orthopedic team who decided to wait on the surgery enter Wednesday morning as the patient takes Eliquis with the last dose the night of admission. His Eliquis was stopped and he was started on Lovenox full-dose. His blood work was within normal but his Was confused and not verbal as reported from the time of admission as his baseline. on June 15 around midnight the patient was found to be hypoxic, responsive and multiple tries with different masks to bring his oxygen up failed. Blood work was orders showing acute kidney injury, lactic acidosis and significant metabolic acidosis in a. He went into cardiac arrest and code was called overnight starting CPR and were able to obtain ROSC after 20 minutes of CPR. He was intubated as well but 10 minutes after ROSC patient went into cardiac arrest again and the night team were unsuccessful in reviving the patient.? Patient passed at 01:25 on 06/15.? Guardian was called, no answer at the phone, Night team left a voice message. Time Spent with Patient Time attestation: Total time spent providing and/or coordinating discharge services: Discharge coordination time: Greater than 30 minutes Quality: Safe Use of Opioids Does Pt have an Active Cancer Diagnosis on the Problem List?: No Quality: Stroke Does the patient have a stroke diagnosis?: No Physical Exam Vital Signs: Vital Signs: Last Vital Signs Temp 97.4 F 06/14/21 23:31 Pulse 101 H 06/14/21 19:16 Resp 58 H 06/14/21 23:31 BP 98/76 06/14/21 23:31 Pulse Ox 86 L 06/15/21 00:00 BMI result Body Mass Index 23.6 Const: Other: DS: Data Data Completed and Pending Labs on day of discharge: Laboratory Results - last 24 hr 06/14/21 06/15/21 06/15/21 06:05 00:36 00:36 VBG pH VBG pCO2 VBG pO2 VBG HCO3 VBG O2 Saturation VBG Base Excess Sodium 141 139 Potassium 4.3 4.6 Chloride 107 105 Carbon Dioxide 23 8 L* D Anion Gap 15 31 H BUN 27 H 41 H D Creatinine 1.00 3.38 H Estim Creat Clear Calc 71.6 21.2 Estimated GFR > 60 18 Random Glucose 137 H 357 H* Lactic Acid 14.3 H* Calcium 10.0 9.2 D 06/15/21 00:36 VBG pH 6.91 L* VBG pCO2 33 VBG pO2 68 VBG HCO3 7 L VBG O2 Saturation 72.0 VBG Base Excess -24.5 Sodium Potassium Chloride Carbon Dioxide Anion Gap BUN Creatinine Estim Creat Clear Calc Estimated GFR Random Glucose Lactic Acid Calcium Discharge Plan Discharge Patient Disposition: Discharge Diagnosis: Referrals: Physician,Unknown J [Primary Care Provider] - 1 Week Discharge Medications: No Action atorvastatin [Lipitor] 20 mg Tablet 20 mg PO BEDTIME 0RF diltiazem HCl [Cartia XT] 180 mg Capsule,Extended Release 24hr 180 mg PO DAILY 0RF famotidine [Pepcid] 40 mg Tablet 40 mg PO DAILY 0RF olanzapine [Zyprexa] 10 mg Tablet 10 mg PO BID 0RF olanzapine [Zyprexa] 2.5 mg Tablet 2.5 mg PO BID 0RF benztropine [Cogentin] 1 mg Tablet 1 mg PO BID 0RF mirtazapine [Remeron] 15 mg Tablet 7.5 mg PO BEDTIME 0RF metoprolol tartrate 25 mg Tablet 25 mg PO BID 0RF Eliquis 5 mg Tablet 5 mg PO BID 0RF polyethylene glycol 3350 [Miralax] 17 gram Powder In Packet 17 g PO DAILY 0RF quetiapine [Seroquel] 200 mg Tablet 150 mg PO BEDTIME 0RF tamsulosin [Flomax] 0.4 mg Capsule 0.4 mg PO BEDTIME 0RF valproic acid (as sodium salt) [Depakene] 250 mg/5 mL Solution 625 mg PO BID 0RF quetiapine [Seroquel] 50 mg Tablet 50 mg PO DAILY 0RF sennosides-docusate sodium [Senna Plus] 8.6-50 mg Tablet 1 tab-cap PO BID 0RF aspirin 81 mg Tablet,Chewable 81 mg PO DAILY 0RF
[2021-06-15 07:30] LABS: Glucose, Whole Blood 182 mg/dL (60-115)
--- NOTE | 2021-07-04 09:40 | MHC.CDI.RETR ---
Documented by User: Pura Jacobs CCS, CDIS 07/04/21 09:49 Retrospective Query PHYSICIAN'S DOCUMENTATION REQUEST Date of Query: 07/04/21939 Patient Name: Balbir Estrada Admit Date: 06/13/21 Dear Doctor, A review of the medical record indicates additional documentation may be needed. Please review below and update the documentation accordingly. Clinical Indicators: Risk Factors/Clinical Indicators/Treatments Patient admitted with left intertrochanteric fracture of the femur, in on Eliquis for Afib. Event note: 06/15 - concerning for hypoxia, unresponsiveness, slightly hypotensive, RR 58, unable to obtain vitals, tachypneic, went into cardiac arrest, IV fluids started. certificate: 06/15 - Cardiopulmonary arrest due to possible PE/hypoxic respiratory failure. Please indicate in your progress notes if you are in agreement that the above diagnosis is valid for this patient: (Possible, probably, suspected) Acute Pulmonary embolism with acute hypoxic respiratory failure Not treating Pulmonary Embolism with acute hypoxic respiratory failure Other (please specify) Unable to determine Use of terms such as suspected, likely, concern for, or probable (associated with a specific diagnosis that is being evaluated, monitored, or treated as if it exists) are acceptable and can be coded in the inpatient setting, when documented at the time of discharge. Thank you, Pura Jcaobs [facility], CDIS Extension: [phone] Please use your independent medical judgment in providing your response. THIS QUERY IS PART OF THE PERMANENT MEDICAL RECORD Documented by User: Martina Whittington MD 07/09/21 08:38 Retrospective Query Provider Response: Other (Fat embolism cannot be ruled out as the patient was on full-dose Lovenox to prevent DVT and pulmonary embolism.)
== END 2021-06-15 01:30 | disposition expired | DRG 930 ==
LOC: HO.ED 22:15 → HO.EDOVER 23:40 → HO.S3 06-14 14:42
PROVIDERS: Admitting Provider Internal Medicine; Emergency Provider Emergency Medicine; Visit Provider Student in an Organized Health Care Education/Training Program
DX: S72.145A Nondisplaced intertrochanteric fracture of left femur, initial encounter for closed fracture (principal); T79.1XXA Fat embolism (traumatic), initial encounter; N17.9 Acute kidney failure, unspecified; E87.2 Acidosis; I95.9 Hypotension, unspecified; F03.90 Unspecified dementia, unspecified severity, without behavioral disturbance, psychotic disturbance, mood disturbance, and anxiety; I48.91 Unspecified atrial fibrillation; I46.9 Cardiac arrest, cause unspecified; R09.02 Hypoxemia; W18.30XA Fall on same level, unspecified, initial encounter; I10 Essential (primary) hypertension; Z20.822 Contact with and (suspected) exposure to COVID-19; Z79.01 Long term (current) use of anticoagulants; Z79.82 Long term (current) use of aspirin; Z79.899 Other long term (current) drug therapy
CPT/HCPCS: 36415; 70450; 72125; 72170; 73560; 80048; 80076; 82803; 82947; 83605; 83735; 85025; 85610; 86850; 86900; 86901; 87635; 93005; 94799; 99285; J0171; J0330; J0461; J1650; J2270